=== PATIENT | male | born 2000 | race Hispanic/Latino ===

== ENCOUNTER 2024-02-03 15:04 | Emergency (ER) | payer SELFPAY ==
[2024-02-03 15:06] VITALS: BP 146/84
[2024-02-03 15:33] LABS: Urine Albumin Negative (Neg - Trace); Urine Bilirubin Negative (Negative); Urine Character Clear (Clear); Urine Color Yellow; Urine Glucose Negative (Negative); Urine Ketone Negative (Negative); Urine Leukocyte Negative (Negative); Urine Nitrite Negative (Negative); Urine Occult Blood Negative (Negative); Urine Urobilinogen Negative (Neg - 1+)
[2024-02-03 15:35] LABS: % Basophils 0.6 % (0-2); % Eosinophils 3.9 % (0-6); % Immature Granulocytes 0.4 % (0-0.5); % Lymphocytes 46.3 % (20.5-51.1); % Monocytes 6.1 % (1.7-9.3); % Neutrophils 42.7 % (42.2-75.2); Absolute Basophils 0.1 10^3/uL (0-0.2); Absolute Eosinophils 0.3 10^3/uL (0-0.7); Absolute Lymphocytes 3.8 10^3/uL (1.2-3.4); Absolute Monocytes 0.5 10^3/uL (0.1-0.6); Absolute Neutrophils 3.5 10^3/uL (1.4-6.5); Hematocrit 40.9 % (39.0-52.0); Hemoglobin 14.8 g/dL (13.0-18.0); Mean Corp Hgb Conc. 36.2 g/dL (33.0-37.0); Mean Corpuscular Hgb 28.2 pg (27.0-31.0); Mean Corpuscular Volume 77.9 fL (80.0-94.0); Mean Platelet Volume 11.2 fL (7.4-10.4); Nucleated Red Blood Cells % 0 % (-); Platelet Count 292 10^3/uL (130-400); Red Blood Cell Count 5.25 10^6/uL (4.70-6.10); Red Cell Dist. Width 11.7 % (11.5-14.5); White Blood Cell Count 8.2 10^3/uL (4.8-10.8)
[2024-02-03 15:47] LABS: ALT (SGPT) 42 U/L (0-50); AST (SGOT) 36 U/L (17-59); Albumin 5.2 g/dl (3.5-5.0); Alkaline Phosphatase 101 U/L (38-126); Blood Urea Nitrogen 21 mg/dl (9-20); Calcium 10.2 mg/dl (8.4-10.2); Glucose 118 mg/dl (70-99); Lipase 44 U/L (23-300); Total Bilirubin 0.7 mg/dl (0.2-1.3); Total Protein 7.8 g/dl (6.3-8.2); eGFR > 60.00
[2024-02-03 16:06] LABS: Carbon Dioxide 27 mmol/L (22-30); Chloride 104 mmol/L (98-107); Potassium 4.3 mmol/L (3.5-5.1); Sodium 139 mmol/L (135-145)
[2024-02-03] MEDS: OMNIPAQUE 50 ML PO (16:46)
[2024-02-03 16:55] VITALS: BP 124/60
--- NOTE | 2024-02-03 17:04 | ED.GENMED ---
History of Present Illness
<Elyse Rizvi COORDINATOR OF REHABILITATION SERVICES - Last Filed: 02/03/24 18:35>
General
Chief Complaint: Abdominal Pain
Source: patient and other (Language line broadcast operations technician [id number])
Exam Limitations: none
Time Seen by Provider: 02/03/24 16:28
Nursing documentation reviewed up to this point in time: agreed with
History of Present Illness
History of Present Illness:
23-year-old male states he has had 4 days of right lower quadrant pain. Yesterday was the worst day until today when it was even worse. He denies fever or chills. Denies nausea vomiting or diarrhea. Earlier today the pain was 8/10, now it is
4/10.
Past History
<Elyse Rizvi, COORDINATOR OF REHABILITATION SERVICES - Last Filed: 02/03/24 18:35>
Past History
ED Past Medical History: None
ED Past Surgical History: Other (Hernia repair left abdomen)
Social History
Tobacco: Smoker (occasional)
Alcohol: Occasional
Personal: Single
Living: with roommate
Employment: Employed
Review of Systems
<Elyse Rizvi, COORDINATOR OF REHABILITATION SERVICES - Last Filed: 02/03/24 18:35>
Review of Systems
Allergies reviewed?: Yes
All Other Systems: ROS reviewed and negative except as documented in HPI and ROS
Constitutional: Denies fever or chills
Respiratory: Denies trouble breathing
Cardiac: Denies chest pain
ABD/GI: Reports abdominal pain; Denies nausea, vomiting, diarrhea or anorexia
: Denies dysuria or difficulty voiding
Musculoskeletal: Reports no symptoms
Skin: Reports no symptoms
Neurological: Reports no symptoms
Phy Exam
<Elyse Rizvi, COORDINATOR OF REHABILITATION SERVICES - Last Filed: 02/03/24 18:35>
Physical Exam
Physical Exam:
GENERAL: No acute distress. A&Ox3.
CONSTITUTIONAL: Afebrile.
EYES: clear, conjunctivae normal
ENMT: moist mucus membranes, Pharynx nl
RESPIRATORY: Regular respirations, nonlabored, lungs clear.
CARDIOVASCULAR: Regular rate and rhythm, no murmurs, no rubs.
GI: Soft, tender to deep palpation right lower quadrant, normal BS
MUSCULOSKELETAL: Moves with ease. Well perfused.
SKIN: Warm, dry, normal
PSYCH: Normal mood and affect. Well kept, interactive and appropriate
NEUROLOGIC: Awake, alert and oriented. No focal neurological deficits
Course
<Elyse Rizvi, COORDINATOR OF REHABILITATION SERVICES - Last Filed: 02/03/24 18:35>
Orders/Labs/Results
Orders:
Orders
02/03/24 15:20
Complete Blood Count/With Diff Urgent
Comprehensive Metabolic Panel Urgent
Lipase Urgent
Urinalysis Reflex To Culture Urgent
Date Specimen was Collected: 02/03/24
Time Specimen was Collected: 15:10
02/03/24 16:39
CT Abd/pel W Iv And Oral Contr Urgent
Comment:
Reason For Exam: RLQ pain
Iohexol [Omnipaque] See Protocol PO NOW STA
Abnormal Lab Results
02/03/24
15:20
MCV 77.9 L fL
(80.0-94.0)
MPV 11.2 H fL
(7.4-10.4)
Absolute Lymphs (auto) 3.8 H 10^3/uL
(1.2-3.4)
BUN 21 H mg/dl
(9-20)
Glucose 118 H mg/dl
(70-99)
Albumin 5.2 H g/dl
(3.5-5.0)
02/03/24 15:20
02/03/24 15:20
Vital Signs
Initial and Last Documented VS:
Initial Vital Signs
Temp Pulse Resp BP Pulse Ox
98.6 F 99 16 146/84 97
02/03/24 15:06 02/03/24 15:06 02/03/24 15:06 02/03/24 15:06 02/03/24 15:06
Last Documented Vital Signs
Temp Pulse Resp BP Pulse Ox
98.6 F 87 18 151/75 98
02/03/24 15:06 02/03/24 20:04 02/03/24 20:04 02/03/24 20:04 02/03/24 20:04
<Ashok Rodarte PA-C - Last Filed: 02/03/24 21:32>
Orders/Labs/Results
Orders:
Orders
02/03/24 15:20
Complete Blood Count/With Diff Urgent
Comprehensive Metabolic Panel Urgent
Lipase Urgent
Urinalysis Reflex To Culture Urgent
Date Specimen was Collected: 02/03/24
Time Specimen was Collected: 15:10
02/03/24 16:39
CT Abd/pel W Iv And Oral Contr Urgent
Comment:
Reason For Exam: RLQ pain
Iohexol [Omnipaque] See Protocol PO NOW STA
Abnormal Lab Results
02/03/24
15:20
MCV 77.9 L fL
(80.0-94.0)
MPV 11.2 H fL
(7.4-10.4)
Absolute Lymphs (auto) 3.8 H 10^3/uL
(1.2-3.4)
BUN 21 H mg/dl
(9-20)
Glucose 118 H mg/dl
(70-99)
Albumin 5.2 H g/dl
(3.5-5.0)
02/03/24 15:20
02/03/24 15:20
Vital Signs
Initial and Last Documented VS:
Initial Vital Signs
Temp Pulse Resp BP Pulse Ox
98.6 F 99 16 146/84 97
02/03/24 15:06 02/03/24 15:06 02/03/24 15:06 02/03/24 15:06 02/03/24 15:06
Last Documented Vital Signs
Temp Pulse Resp BP Pulse Ox
98.6 F 87 18 151/75 98
02/03/24 15:06 02/03/24 20:04 02/03/24 20:04 02/03/24 20:04 02/03/24 20:04
<Elyse Rizvi COORDINATOR OF REHABILITATION SERVICES - Last Filed: 02/03/24 18:35>
MDM/Problems Addressed
Differential Diagnosis Includes:
appendicitis, constipation
MDM/Problems Addressed:
23-year-old male states he has had 4 days of right lower quadrant pain. Yesterday was the worst day until today when it was even worse. He denies fever or chills. Denies nausea vomiting or diarrhea. Earlier today the pain was 8/10, now it is
4/10.
Afebrile
3:45 PM:
CBC normal
CMP normal
UA normal
6:30 PM: Case discussed with DENA Gomez who will assume care from this point
Abdominal and pelvic CAT scan with IV and p.o. contrast pending
<Ashok Rodarte PA-C - Last Filed: 02/03/24 21:32>
*Critical Care Note
Total Time (30-74mins, 75-104mins- exclusive of procedures): Not Applicable
<Ashok Rodarte PA-C - Last Filed: 02/03/24 21:32>
Update Note
Update Note:
Imaging reviewed, no acute process. Pt reassured. d/c in stable condition
ED Attending Note
<Elyse Rizvi COORDINATOR OF REHABILITATION SERVICES - Last Filed: 02/03/24 18:35>
-
Portions of this chart may have been created with voice recognition software.� Occasional wrong word or��sound alike� substitutions may have occurred due to the inherent limitations of voice recognition software.
Discharge Plan
Departure
Patient Disposition: Home (Routine Discharge)
Date of Disposition: 02/03/24
Time of Disposition: 21:17
Patient with high blood pressure during this ER visit?: No
Discharge Problem:
Abdominal pain
Instructions: Abdominal Pain
Referrals:
NONE,* [Family Provider] -
Interventions
Interventions:
*Risk Screen - Suicide Last Done: 02/03/24 16:48
*General Assessment Last Done: 02/03/24 15:06
*Neglect/Abuse Screening Last Done: 02/03/24 16:48
ED- Fall Risk Assessment Last Done: 02/03/24 19:07
*ED COVID-19 Vaccine History Last Done: 02/03/24 15:06
DU-Ujqcxk-Xttiteusde Assessment Last Done: 02/03/24 17:00
Discharge Date and Time
Print Language: CROATIAN
[2024-02-03 20:04] VITALS: BP 151/75
== END 2024-02-03 21:30 | disposition home or self-care (01) ==
LOC: EMR 15:04
PROVIDERS: EMERGENCY PHYSICIAN Emergency Medicine
DX: R10.31 Right lower quadrant pain (principal); F17.200 Nicotine dependence, unspecified, uncomplicated
CPT/HCPCS: 99284; 74177; 80053; 81003; 83690; 85025; Q9967